=== PATIENT | male | born 1980 | race Asian ===

== ENCOUNTER 2016-06-07 23:16 | Emergency (ER) | payer OTHER ==
[~2016-06-07] VITALS: Ht 167.6 cm; Wt 60.0 kg
[2016-06-07 23:20] VITALS: Ht 167.6 cm; Wt 60.0 kg
[2016-06-07] MEDS ORDERED: SODIUM CHLORIDE 0.9% 1000ML 1,000 ML IV STA (23:38)
[2016-06-07] MEDS ORDERED: ONDANSETRON INJ 2 MG/ML 2 ML VIAL IV STA (23:38)
[2016-06-07] MEDS ORDERED: KETOROLAC TROMETHAMINE 30 MG/ML VIAL IV STA (23:38)
[2016-06-07] MEDS ORDERED: LIDOCAINE HCL 2% VISC SOLN 20 ML UDC MT STA (23:38)
[2016-06-07] MEDS ORDERED: ONDANSETRON HOME PACK 4MG OD TAB PO ONE (23:45)
[2016-06-07] MEDS ORDERED: VITB2100 PO (23:47)
[2016-06-08 00:18] LABS: HEMATOCRIT 41.6 % (42-52); MEAN CELL VOLUME 80.3 fL (80-100); MEAN CORPUSCULAR HEMOGLOBIN 27.6 pg (25-34); MEAN CORPUSCULAR HGB CONC 34.4 g/dl (32-36); MEAN PLATELET VOLUME 9.2 fL (7.4-10.4); PLATELET COUNT 234 K/uL (130-400); RED BLOOD COUNT 5.18 M/uL (4.7-6.1); WHITE BLOOD COUNT 17.68 K/uL (4.8-10.8)
[2016-06-08 00:37] LABS: BUN/CREATININE RATIO 8.9 (10-20); CALCIUM 8.8 mg/dl (8.5-10.1); POTASSIUM 3.2 mmol/L (3.5-5.1)
[2016-06-08 00:44] LABS: BASO % 0.1 %; BASO ABS # 0.02 K/uL (0-0.2); COMPLETE YES; EOS % 0.1 %; IG% 0.2 %; LYMPH % 3.5 %; LYMPH ABS # 0.62 K/uL (1.2-3.4); MONO % 8.1 %
[2016-06-08] MEDS ORDERED: POTASSIUM CHLORIDE 10 MEQ TABCR PO STA (00:54)
[2016-06-08] MEDS ORDERED: ALBUTEROL HFA 8 GM INHALER INH STA (00:54)
[2016-06-08] MEDS ORDERED: SODIUM CHLORIDE 0.9% 1000ML 1,000 ML IV STA (00:57)
[2016-06-08 01:11] VITALS: TEMP 37.2
[2016-06-08] MEDS ORDERED: DOXYCYCLINE HYCLATE 100 MG CAP PO ONE (02:00)
[2016-06-08] MEDS ORDERED: DOXY100C2 PO (02:01)
[2016-06-08 02:15] VITALS: BP 127/70; PULSE 115; O2SAT 96
--- NOTE | 2016-06-08 04:39 | EMERGENCY ROOM VISIT NOTE ---
History First contact with patient: 23:27 Chief Complaint: FLU LIKE SX Stated Complaint: FLU LIKE SX WITH HIGH FEVER OVER 8 HOURS History of Present Illness The patient is a 36 year old male who presents to the Emergency Room with complaints of fever, chills, cough, sore throat, congestion for the past day. Patient took Tylenol at 6 PM. No recent travel. Patient denies chest pain, dyspnea, abdominal pain, neck stiffness, vomiting, diarrhea. He is tolerating By mouth fluids and food. Review of Systems See HPI for pertinent positives & negatives. A total of 10 systems reviewed and were otherwise negative. Past Medical/Surgical History None Social History Smoking Status: Never Smoker Smokeless Tobacco Use: No Alcohol Use: none Drug Use: none Occupation Status: [employer] Current/Historical Medications Scheduled Doxycycline Hyclate (Vibramycin), 100 MG PO BID Riboflavin (Vitamin B-2), 200 MG PO DAILY Allergies Coded Allergies: No Known Allergies (Unverified , 06/07/16) Physical Exam Vital Signs Date Time Temp Pulse Resp B/P Pulse Ox O2 Delivery O2 Flow Rate FiO2 06/08/16 02:15 115 18 127/70 96 06/08/16 01:11 37.2 06/08/16 01:08 123 18 108/66 95 Room Air 06/08/16 00:51 120 18 108/55 95 Room Air 06/07/16 23:20 37.0 137 18 119/81 97 Room Air Pain Rating (0-10): 0 Physical Exam VITALS: Vitals are noted on the nurse's note and reviewed by myself. Vital signs tachycardic GENERAL: Pleasant male mildly ill-appearing, in no acute distress, nondiaphoretic, well-developed well-nourished. SKIN: The skin was without rashes, erythema, edema, or bruising. There is no tenting of the skin. Capillary reflex less than 2 seconds. HEAD: Normocephalic atraumatic. EARS: External auditory canals clear, tympanic membranes pearly loyola without erythema or effusion bilaterally. EYES: Pupils equal round and reactive to light and accommodation. Conjunctivae without injection, sclerae without icterus. Extraocular movements intact. NOSE: Patent, turbinates without inflammation or discharge. No sinus tenderness. MOUTH: Mucous membranes mildly dry. Pharynx without erythema or exudate. Uvula midline. Airway patent. Tongue does not deviate. NECK: Supple without nuchal rigidity. No lymphadenopathy. No thyromegaly. Cervical spine is nontender. No JVD. No meningeal signs HEART: Regular rate and rhythm without murmurs gallops or rubs. LUNGS: Clear to auscultation bilaterally without wheezes, rales or rhonchi. No dullness to percussion. No retractions or accessory muscle use. ABDOMEN: Positive bowel sounds x 4. Normal tympanic percussion. Soft, nontender, without masses or organomegaly. Ryan sign negative. No guarding or rebound tenderness. MUSCULOSKELETAL: No muscle atrophy, erythema, or edema noted. NEURO: Patient was alert and oriented to person place and time. Normal sensation to light and sharp touch. No focal neurological deficits. Medical Decision & Procedures Laboratory Results 06/08/16 00:00 Red Blood Count 5.18, Mean Corpuscular Volume 80.3, Mean Corpuscular Hemoglobin 27.6, Mean Corpuscular Hemoglobin Concent 34.4, Mean Platelet Volume 9.2, Neutrophils (%) (Auto) 88.0, Lymphocytes (%) (Auto) 3.5, Monocytes (%) (Auto) 8.1, Eosinophils (%) (Auto) 0.1, Basophils (%) (Auto) 0.1, Neutrophils # (Auto) 15.55, Lymphocytes # (Auto) 0.62, Monocytes # (Auto) 1.43, Eosinophils # (Auto) 0.02, Basophils # (Auto) 0.02 06/08/16 00:00 Test 06/07/16 23:45 06/08/16 00:00 Influenza Type A Antigen Neg for Influ A (NEG) Influenza Type B Antigen Neg for Influ B (NEG) White Blood Count 17.68 K/uL (4.8-10.8) Red Blood Count 5.18 M/uL (4.7-6.1) Hemoglobin 14.3 g/dL (14.0-18.0) Hematocrit 41.6 % (42-52) Mean Corpuscular Volume 80.3 fL (80-100) Mean Corpuscular Hemoglobin 27.6 pg (25-34) Mean Corpuscular Hemoglobin Concent 34.4 g/dl (32-36) Platelet Count 234 K/uL (130-400) Mean Platelet Volume 9.2 fL (7.4-10.4) Neutrophils (%) (Auto) 88.0 % Lymphocytes (%) (Auto) 3.5 % Monocytes (%) (Auto) 8.1 % Eosinophils (%) (Auto) 0.1 % Basophils (%) (Auto) 0.1 % Neutrophils # (Auto) 15.55 K/uL (1.4-6.5) Lymphocytes # (Auto) 0.62 K/uL (1.2-3.4) Monocytes # (Auto) 1.43 K/uL (0.11-0.59) Eosinophils # (Auto) 0.02 K/uL (0-0.5) Basophils # (Auto) 0.02 K/uL (0-0.2) RDW Standard Deviation 40.7 fL (36.4-46.3) RDW Coefficient of Variation 13.8 % (11.5-14.5) Immature Granulocyte % (Auto) 0.2 % Immature Granulocyte # (Auto) 0.04 K/uL (0.00-0.02) Red Blood Cell Morphology Unremarkable Anion Gap 11.0 mmol/L (3-11) Est Creatinine Clear Calc Drug Dose 87.5 ml/min Estimated GFR () 112.5 Estimated GFR (Non- 97.1 BUN/Creatinine Ratio 8.9 (10-20) Calcium Level 8.8 mg/dl (8.5-10.1) Medications Administered Medications (Trade) Dose Ordered Sig/Kojo Route Start Time Stop Time Status Last Admin Dose Admin Ketorolac Tromethamine (Toradol Inj) 30 mg NOW STAT IV 06/07/16 23:38 06/07/16 23:40 DC 06/08/16 00:04 30 MG Lidocaine HCl 10 ml 10 ml NOW STAT MT 06/07/16 23:38 06/07/16 23:40 DC 06/08/16 00:03 10 ML Sodium Chloride (Nss 1000ml) 1,000 ml @ 999 mls/hr Q1H1M STAT IV 06/07/16 23:38 06/08/16 00:38 DC 06/08/16 00:03 999 MLS/HR Ondansetron HCl (Zofran Inj) 4 mg NOW STAT IV 06/07/16 23:38 06/07/16 23:40 DC 06/08/16 00:04 4 MG Ondansetron HCl (ZOFRAN ODT 4MG Home Pack) 1 homepack UD ONCE PO 06/07/16 23:45 06/07/16 23:46 DC 06/08/16 00:04 1 HOMEPACK Potassium Chloride (Klor-Con M10) 30 meq NOW STAT PO 06/08/16 00:54 06/08/16 00:57 DC 06/08/16 01:06 30 MEQ Albuterol 2 puffs 2 puffs ONE STAT INH 06/08/16 00:54 06/08/16 00:57 DC 06/08/16 01:06 2 PUFFS Sodium Chloride (Nss 1000ml) 1,000 ml @ 999 mls/hr Q1H1M STAT IV 06/08/16 00:57 06/08/16 01:57 DC 06/08/16 01:06 999 MLS/HR Doxycycline Hyclate (Vibramycin Cap) 100 mg ONE ONCE PO 06/08/16 02:00 06/08/16 02:01 DC 06/08/16 02:00 100 MG ED Course Prior records/ancillary studies reviewed. Triage Nursing notes reviewed. Additional history obtained from friend. The patient's history was concerning for fever. Differential diagnosis: Etiologies such as viral syndrome, otitis, pharyngitis, pneumonia, influenza, meningitis, urinary tract infection, sepsis, bacteremia, as well as others were entertained. Physical examination: Patient was alert mildly ill-appearing no signs of meningitis ER treatment provided: Fluids, doxycycline, albuterol On reassessment the patient felt better. Diagnostics interpreted by me: The labs revealed leukocytosis, negative flu Imaging studies: Chest x-ray with no acute consolidation or pneumothorax per my interpretation This appears to be consistent with bronchitis with an influenza-like illness. Patient had productive cough and had a high white count. I did opt to start him on antibiotics for bronchitis. He had a negative influenza. No signs of meningitis. Negative strep test. He was able to tolerate by mouth fluids and ambulate without difficulties he did request to leave. I felt this is reasonable. He is advised follow-up with health services in a few days or here in the ER sooner for high fevers, lethargy, neck stiffness, worsening signs or symptoms or as needed.. By the evaluation outlined above emergent etiologies such as otitis, pharyngitis, pneumonia, meningitis, urinary tract infection, sepsis, bacteremia, as well as others were deemed relatively unlikely. The pt informed about the findings as listed above. All questions were answered and pleased with the treatment. Return instructions were outlined and the patient was discharged in stable condition. Outpatient prescription management: doxy Referral: The patient was referred back to their primary care physician for follow-up in 2 to 3 days for a recheck of the current condition. Case reviewed with my attending Medical Decision As above Impression Primary Impression: Influenza Additional Impression: Acute bronchitis Departure Information Dispostion Home / Self-Care Condition FAIR Prescriptions Doxycycline Hyclate (VIBRAMYCIN) 100 Mg Cap 100 MG PO BID for 7 Days, #14 CAP Prov: Beatriz Marin ., MARIA R 06/08/16 Forms HOME CARE DOCUMENTATION FORM, School Instructions, Return To School: 3 days IMPORTANT VISIT INFORMATION Patient Instructions Bronchitis Acute Dc, Fever - [facility], My [facility] Additional Instructions Doxycycline 100mg: Take one pill twice daily for seven days for your infection. Take with food, but avoid dairy. Avoid prolonged sun exposure since this medication makes you temporarily more susceptible to sunburns. All antibiotics can cause diarrhea. If this occurs and you feel worse or it does not resolve in 1-2 days follow up with your doctor or return to the Emergency Department as this could be signs of serious underlying problems. Any medication can cause an allergic reaction, stop the pills immediately and return to the ER for rash, hives, breathing difficulties, or swelling. Albuterol Inhaler: Take 2 puffs four times daily for seven days, then as needed. Acetaminophen(Tylenol) may be used for fever or pain. Use 1000mg every six hours as needed. Avoid using more than 3000mg in a 24 hour period. AND/OR Ibuprofen(Motrin, Advil) may be used for fever or pain. Use 600mg every six hours as needed. Take with food. Avoid using more than 2400mg in a 24 hour period. Do not use 2400mg per day for more than three consecutive days without physician direction. Prolonged inappropriate use can lead to stomach upset or ulcers. Controlling your fever with Tylenol and Ibuprofen as above will make you feel better. Rest and drink plenty of fluids. Avoid strenuous activity until your symptoms resolve and your breathing returns to normal. Continue current medications. Return to the ER for chest pain, difficulty breathing, persistent fevers, vomiting, worsening of your condition, or as needed. Follow-up with family care in 2-3 days. School Instructions Return To School: 3 days Problem Qualifiers
--- NOTE | 2016-06-08 07:18 | DIAGNOSTIC IMAGING REPORT ---
CHEST 2 VIEWS ROUTINE CLINICAL HISTORY: Cough. Fever. COMPARISON STUDY: No previous studies for comparison. FINDINGS: Lung volumes are normal. There is no pneumothorax or pleural effusion. There is mild interstitial thickening with a few possible airspace opacities within lungs. Cardiac size is normal. Mediastinal contours are normal. There is no lobar consolidation. IMPRESSION: Mild interstitial thickening with a few possible subtle airspace opacities within the lungs. The findings could reflect an infectious process. No lobar consolidation. Radiographic follow-up is recommended. Electronically signed by: Kamari Alfonso M.D. 06/08/2016 7:16 AM Dictated Date/Time: 06/08/2016 7:15 AM
== END 2016-06-08 02:16 | disposition home or self-care (01) ==
LOC: C.EDB 23:19 → C.EDC 06-08 02:16
DX: J11.89 Influenza due to unidentified influenza virus with other manifestations (principal); J20.9 Acute bronchitis, unspecified